=== PATIENT | female | born 1960 | race Caucasian/White ===

== ENCOUNTER 2016-09-29 14:12 | Emergency (ER) | payer OTHER ==
[~2016-09-29 14:12] MED LIST: FLUO40CA8 PO; SUMA25TA PO; TRAZ100T29 PO
[2016-09-29 14:16] VITALS: TEMP 36.7; Ht 154.9 cm
[2016-09-29] MEDS ORDERED: ONDANSETRON INJ 2 MG/ML 2 ML VIAL IV STA (14:28)
[2016-09-29] MEDS ORDERED: SODIUM CHLORIDE 0.9% 1000ML 1,000 ML IV STA (14:28)
--- NOTE | 2016-09-29 14:38 | EMERGENCY ROOM VISIT NOTE ---
History Report prepared by Chad: Pierce Veliz Under the Supervision of: Dr. Shaheen Velez D.O. First contact with patient: 14:24 Chief Complaint: ABDOMINAL PAIN Stated Complaint: CRAMPING IN STOMACH History of Present Illness The patient is a 56 year old female who presents to the Emergency Room with complaints of worsening abdominal pain starting a few days ago. The patient is having trouble keeping her bag on her stoma. It was initially created about [address]. She has been having worsening pain with having a bowel movement. She notes intermittent discharge from the stoma which causes pain. She also reports nausea and vomiting. She denies fevers, chills, or any other complaints. She has a history of a hernia. Source of History: patient Onset: a few days ago Position: abdomen Quality: other (stoma) Timing: worsening Modifying Factors (Worsening): other (bowel movement) Associated Symptoms: + nausea, + vomiting, No chills, No fevers Review of Systems See HPI for pertinent positives & negatives. A total of 10 systems reviewed and were otherwise negative. Past Medical & Surgical Medical Problems: (1) Crohn's disease (2) Diabetes (3) HTN (hypertension) (4) IBS (irritable bowel syndrome) (5) Stomach problems (6) Urinary problems Family History Cancer Diabetes mellitus Gallbladder disease HTN Hypertension Seizures Social History Smoking Status: Current Every Day Smoker Alcohol Use: none Drug Use: none Marital Status: single Housing Status: lives with family Occupation Status: unemployed Current/Historical Medications Scheduled Amitriptyline HCl (Amitriptyline HCl), 10 MG PO HS Fluoxetine (Prozac), 60 MG PO DAILY Ondasetron Odt (Zofran Odt), 4 MG SL Q6H Trazodone Hcl (Trazodone), 100 MG PO HS Scheduled PRN Methocarbamol (Robaxin), 500 MG PO QID PRN for MARK OR NECK PAIN Oxycodone Immediate Rel Tab (Roxicodone Ir), 1-2 TAB PO Q4H PRN for Severe Pain Sumatriptan Succinate (Imitrex), 100 MG PO PRN PRN for Migraine Allergies Coded Allergies: Penicillins (Verified Allergy, Mild, RASH, N/V, 09/29/16) Physical Exam Vital Signs Date Time Temp Pulse Resp B/P Pulse Ox O2 Delivery O2 Flow Rate FiO2 09/29/16 18:36 98 14 133/107 94 Room Air 09/29/16 17:40 79 18 124/65 94 Room Air 09/29/16 15:44 76 18 121/57 93 Room Air 09/29/16 14:16 36.7 84 20 123/67 94 Room Air Physical Exam GENERAL: Patient is awake, alert, and in no acute distress. Patient is resting comfortably and showing no signs of anxiety EYES: The conjunctivae are clear. The pupils are round and reactive. EARS, NOSE, MOUTH AND THROAT: The nose is without any evidence of any deformity. Mucous membranes are moist tongue is midline NECK: The neck is nontender and supple. RESPIRATORY: Normal respiratory effort is noted there is no evidence of wheezing rhonchi or rales CARDIOVASCULAR: Regular rate and rhythm noted there no murmurs rubs or gallops normal S1 normal S2 GASTROINTESTINAL: The abdomen is moderately distended but soft. Bowel sounds are present in all quadrants. Abdomen is nontender. Stoma noted on the right side of the abdomen, no bleeding or erythema noted. MUSCULOSKELETAL/EXTREMITIES: There is no evidence of gross deformity full range of motion is noted in the hips and shoulders SKIN: There is no obvious evidence of any rash. There are no petechiae, pallor or cyanosis noted. NEUROLOGIC: Patient is awake alert and oriented x3 Medical Decision & Procedures ER Provider Diagnostic Interpretation: CT results as stated below per my review and radiologist interpretation. CT OF THE ABDOMEN AND PELVIS WITH CONTRAST Impression: No acute process within the abdomen or pelvis Status post proctocolectomy with right lower quadrant ostomy. No change in a small parastomal hernia. No bowel obstruction. Fatty liver and hepatomegaly. Stable biliary and pancreatic ductal dilatation. The etiology is unclear but stability favors a benign etiology. Laboratory Results 09/29/16 14:39 Red Blood Count 4.94, Mean Corpuscular Volume 86.8, Mean Corpuscular Hemoglobin 30.2, Mean Corpuscular Hemoglobin Concent 34.7, Mean Platelet Volume 9.7, Neutrophils (%) (Auto) 57.5, Lymphocytes (%) (Auto) 34.3, Monocytes (%) (Auto) 6.0, Eosinophils (%) (Auto) 1.8, Basophils (%) (Auto) 0.2, Neutrophils # (Auto) 5.05, Lymphocytes # (Auto) 3.02, Monocytes # (Auto) 0.53, Eosinophils # (Auto) 0.16, Basophils # (Auto) 0.02 09/29/16 14:39 Test 09/29/16 14:39 09/29/16 15:44 White Blood Count 8.80 K/uL (4.8-10.8) Red Blood Count 4.94 M/uL (4.2-5.4) Hemoglobin 14.9 g/dL (12.0-16.0) Hematocrit 42.9 % (37-47) Mean Corpuscular Volume 86.8 fL (80-100) Mean Corpuscular Hemoglobin 30.2 pg (25-34) Mean Corpuscular Hemoglobin Concent 34.7 g/dl (32-36) Platelet Count 312 K/uL (130-400) Mean Platelet Volume 9.7 fL (7.4-10.4) Neutrophils (%) (Auto) 57.5 % Lymphocytes (%) (Auto) 34.3 % Monocytes (%) (Auto) 6.0 % Eosinophils (%) (Auto) 1.8 % Basophils (%) (Auto) 0.2 % Neutrophils # (Auto) 5.05 K/uL (1.4-6.5) Lymphocytes # (Auto) 3.02 K/uL (1.2-3.4) Monocytes # (Auto) 0.53 K/uL (0.11-0.59) Eosinophils # (Auto) 0.16 K/uL (0-0.5) Basophils # (Auto) 0.02 K/uL (0-0.2) RDW Standard Deviation 44.7 fL (36.4-46.3) RDW Coefficient of Variation 14.0 % (11.5-14.5) Immature Granulocyte % (Auto) 0.2 % Immature Granulocyte # (Auto) 0.02 K/uL (0.00-0.02) Prothrombin Time 9.5 SECONDS (9.0-12.0) Prothromb Time International Ratio 0.9 (0.9-1.1) Activated Partial Thromboplast Time 24.8 SECONDS (21.0-31.0) Partial Thromboplastin Ratio 1.0 Anion Gap 5.0 mmol/L (3-11) Estimated GFR () 91.3 Estimated GFR (Non- 78.8 BUN/Creatinine Ratio 17.3 (10-20) Calcium Level 9.7 mg/dl (8.5-10.1) Total Bilirubin 0.3 mg/dl (0.2-1) Direct Bilirubin < 0.1 mg/dl (0-0.2) Aspartate Amino Transf (AST/SGOT) 35 U/L (15-37) Alanine Aminotransferase (ALT/SGPT) 61 U/L (12-78) Alkaline Phosphatase 95 U/L (45-117) Total Protein 7.4 gm/dl (6.4-8.2) Albumin 3.6 gm/dl (3.4-5.0) Lipase 445 U/L (73-393) Urine Color YELLOW Urine Appearance CLEAR (CLEAR) Urine pH 5.0 (4.5-7.5) Urine Specific [place] 1.011 (1.000-1.030) Urine Protein NEG (NEG) Urine Glucose (UA) NEG (NEG) Urine Ketones NEG (NEG) Urine Occult Blood NEG (NEG) Urine Nitrite NEG (NEG) Urine Bilirubin NEG (NEG) Urine Urobilinogen NEG (NEG) Urine Leukocyte Esterase NEG (NEG) Laboratory results per my review. Medications Administered Medications (Trade) Dose Ordered Sig/Jo Route Start Time Stop Time Status Last Admin Dose Admin Sodium Chloride (Nss 1000ml) 1,000 ml @ 999 mls/hr Q1H1M STAT IV 09/29/16 14:28 09/29/16 15:28 DC 09/29/16 15:17 999 MLS/HR Ondansetron HCl (Zofran Inj) 4 mg NOW STAT IV 09/29/16 14:28 09/29/16 14:30 DC 09/29/16 15:16 4 MG Morphine Sulfate (MoRPHine SULFATE INJ) 4 mg Q15M PRN IV 09/29/16 15:30 10/13/16 15:29 09/29/16 15:43 4 MG ED Course 1424: The patient was evaluated in room C01B. A complete history and physical examination were performed. 1428: Sodium Chloride 1000 ml @ 999 mls/hr IV 1530: Morphine Sulfate 4 mg IV 1818: Upon reevaluation, the patient is resting comfortably. I discussed the results and treatment plan with her. She verbalized agreement of the treatment plan. The patient was discharged home. 1828: I discussed the patient's case with Dr. Sun, general surgeon with [facility], for outpatient followup. Medical Decision Prior records/ancillary studies reviewed. Triage Nursing notes reviewed. The patient's history was concerning for abdominal pain. Differential diagnosis: Etiologies such as appendicitis, diverticulitis, PUD, biliary pathology, UTI, pancreatitis, obstruction, mesenteric ischemia, aortic pathology, infections, inflammatory bowel disease, renal colic, as well as others were entertained. The patient is a 56-year-old female who presented to the emergency department for an evaluation of abdominal pain which has been chronic in nature. She states that she's had a parastomal hernia which is been hurting ever since she had surgery 3 years ago. The patient was treated with IV fluids IV pain medication and IV antiemetics. Her CAT scan did not show any acute intra- abdominal process. I discussed her case with the on-call general surgeon. I have recommended that she try to follow-up with her primary general surgical group but she could also try to follow-up with our surgical group if she was unable to get in with her primary surgeon. She was also encouraged to follow-up with her primary care physician this is possible. She was also encouraged to continue all medications as prescribed and return to the emergency department immediately if symptoms change worsen or the need arises. Consults Time Called: 1825 Consulting Physician: Dr. Sun, general surgeon with [facility] Returned Call: 1827 I discussed the patient's case with Dr. Sun, general surgeon with [facility], for outpatient followup. Impression Primary Impression: RLQ abdominal pain Additional Impression: Parastomal hernia Scribe Attestation The scribe's documentation has been prepared under my direction and personally reviewed by me in its entirety. I confirm that the note above accurately reflects all work, treatment, procedures, and medical decision making performed by me. Departure Information Dispostion Home / Self-Care Prescriptions Oxycodone Immediate Rel Tab (ROXICODONE IR) 5 Mg Tab 1-2 TAB PO Q4H Y for Severe Pain, #24 TAB Prov: Shaheen Velez, DO 09/29/16 Ondasetron Odt (ZOFRAN ODT) 4 Mg Tab 4 MG SL Q6H for Nausea, #15 TAB Prov: Shaheen Velez, DO 09/29/16 Referrals No Doctor, Assigned (PCP) King Sun M.D. Burke, P Brian, M.D. (MEDICAL) Forms Call Back Authorization, HOME CARE DOCUMENTATION FORM, IMPORTANT VISIT INFORMATION Patient Instructions Abdominal Pain, My [facility] [employer] Additional Instructions Call your primary surgeon to schedule a follow-up appointment for the parastomal hernia. Drink plenty clear liquids. Continue all medications as prescribed. Problem Qualifiers Additional Impression: Parastomal hernia Obstruction and gangrene presence: without obstruction or gangrene Qualified Codes: K43.5 - Parastomal hernia without obstruction or gangrene
[2016-09-29] MEDS ORDERED: OPTIRAY 320 IV PRN (14:45)
[2016-09-29] MEDS ORDERED: IMT100 PO (15:00)
[2016-09-29] MEDS ORDERED: AMT10 PO (15:00)
[2016-09-29] MEDS ORDERED: METH500T37 PO (15:00)
[2016-09-29 15:10] LABS: BASO % 0.2 %; BASO ABS # 0.02 K/uL (0-0.2); COMPLETE YES; EOS % 1.8 %; HEMATOCRIT 42.9 % (37-47); IG% 0.2 %; LYMPH % 34.3 %; LYMPH ABS # 3.02 K/uL (1.2-3.4); MEAN CELL VOLUME 86.8 fL (80-100); MEAN CORPUSCULAR HEMOGLOBIN 30.2 pg (25-34); MEAN CORPUSCULAR HGB CONC 34.7 g/dl (32-36); MEAN PLATELET VOLUME 9.7 fL (7.4-10.4); NEUT % 57.5 %; PLATELET COUNT 312 K/uL (130-400); RED BLOOD COUNT 4.94 M/uL (4.2-5.4)
[2016-09-29 15:19] LABS: INR 0.9 (0.9-1.1); PROTHROMBIN TIME (PATIENT) 9.5 SECONDS (9.0-12.0)
[2016-09-29 15:28] LABS: ALT/SGPT 61 U/L (12-78); AST/SGOT 35 U/L (15-37); BLOOD UREA NITROGEN 15 mg/dl (7-18); BUN/CREATININE RATIO 17.3 (10-20); CALCIUM 9.7 mg/dl (8.5-10.1); CARBON DIOXIDE 31 mmol/L (21-32); CHLORIDE 102 mmol/L (98-107); CREATININE 0.84 mg/dl (0.60-1.20); GLUCOSE 100 mg/dl (70-99); SODIUM 138 mmol/L (136-145)
[2016-09-29] MEDS ORDERED: MoRPHine SULFATE 4 MG/ML 1 ML CARP\\VIAL IV PRN (15:30)
[2016-09-29 15:31] LABS: ALKALINE PHOSPHATASE 95 U/L (45-117)
[2016-09-29 16:01] LABS: URINE APPEARANCE CLEAR (CLEAR); URINE BILIRUBIN NEG (NEG); URINE COLOR YELLOW; URINE NITRITE NEG (NEG); URINE SPECIFIC GRAVITY 1.011 (1.000-1.030); UROBILINOGEN NEG (NEG)
[2016-09-29 16:04] LABS: MANUAL MICROSCOPIC REQUIRED? NO; REVIEW REQ? NO
[2016-09-29] MEDS ORDERED: OXYC1TAB3 PO (18:23)
[2016-09-29] MEDS ORDERED: ONDA4TAB10 SL (18:23)
[2016-09-29 18:36] VITALS: BP 133/107; PULSE 98; O2SAT 94
--- NOTE | 2016-09-29 19:44 | DIAGNOSTIC IMAGING REPORT ---
CT OF THE ABDOMEN AND PELVIS WITH CONTRAST CLINICAL HISTORY: Lower abdominal pain. COMPARISON STUDY: CT of the abdomen and pelvis October 30, 2015. TECHNIQUE: Following IV administration of 94 mL of Optiray-320, axial images of the abdomen and pelvis were obtained from the lung bases to the proximal femurs. Images were reviewed in the axial, sagittal, and coronal planes. IV contrast was administered without complication. Oral contrast was administered. CT DOSE: 935.74 mGycm FINDINGS: No pneumatosis, free air or portal venous gas is present. There is fatty infiltration of the liver. Moderate dilatation of the main pancreatic duct is unchanged and CT of February 24, 2009. Mild biliary ductal dilatation is also unchanged. There is no peripancreatic infiltration. There is no hydronephrosis. The spleen and adrenal glands are normal. There is no evidence for a bowel obstruction. There are findings consistent with a proctocolectomy with a right lower quadrant ostomy. A small parastomal hernia is unchanged. There is no evidence for a bowel obstruction. Contrast reaches the ostomy. No suspicious skeletal lesions are identified. IMPRESSION: 1. No acute process within the abdomen or pelvis. 2. Status post proctocolectomy with right lower quadrant ostomy. No change in a small parastomal hernia. No bowel obstruction. 3. Fatty liver and hepatomegaly. 4. Stable biliary and pancreatic ductal dilatation. The etiology is unclear but stability favors a benign etiology. Electronically signed by: Hiram Guzman M.D. 09/29/2016 7:42 PM Dictated Date/Time: 09/29/2016 5:35 PM
== END 2016-09-29 18:46 | disposition home or self-care (01) ==
LOC: C.EDB 14:13 → C.EDC 18:46
DX: R10.31 Right lower quadrant pain (principal); K43.5 Parastomal hernia without obstruction or gangrene; R11.2 Nausea with vomiting, unspecified; E11.9 Type 2 diabetes mellitus without complications; I10 Essential (primary) hypertension; K50.90 Crohn's disease, unspecified, without complications; Z79.899 Other long term (current) drug therapy; Z87.19 Personal history of other diseases of the digestive system; Z87.448 Personal history of other diseases of urinary system; Z93.3 Colostomy status; Z82.0 Family history of epilepsy and other diseases of the nervous system; Z82.49 Family history of ischemic heart disease and other diseases of the circulatory system; Z83.3 Family history of diabetes mellitus; Z83.79 Family history of other diseases of the digestive system; F17.200 Nicotine dependence, unspecified, uncomplicated